=== PATIENT | male | born 1955 | race Caucasian/White ===

== ENCOUNTER → 2016-08-15 | Day surgery (SDC) | payer OTHER ==
[~2016-08-15] MED LIST: AMLO5 PO; ASPI81TA45 PO; BENA5; BUPIVACAINE/EPINEPHRINE 0.25% PF 30 ML VIAL ONE; DOXA1 PO; KETOROLAC TROMETHAMINE 30 MG/ML (IVP) VIAL IV PUSH ONE; LACTATED RINGER'S 1000 ML INJ 1,000 ML ONE; MIDAZOLAM HCL 2 MG/2 ML VIAL ONE; ONDANSETRON HCL 4 MG/2 ML VIAL IV PUSH ONE; PROPOFOL 200 MG/20 ML AMP IV ONE; ceFAZolin 2 GM PREMIX 50 ML ONE
--- NOTE | 2016-08-15 11:33 | TN ---
cc: JOSSELINE RENEE M.D. DATE OF SURGERY: 08/15/2016 PREOPERATIVE DIAGNOSIS Left recurrent inguinal hernia. POSTOPERATIVE DIAGNOSIS Left recurrent inguinal hernia. PROCEDURE Laparoscopic repair recurrent left inguinal hernia with mesh. SURGEON Dr. Josseline Renee. OSTEOPATHY DOCTOR KAUR Schrader ANESTHESIA General. INDICATIONS This is a pleasant 61-year-old gentleman who about 20-30 years ago had an open left inguinal hernia repair with mesh by Dr. Bib Munroe. He developed severe pain in the left groin after many years and Dr. Mateo Renee took him back to surgery for mesh removal and suture repair of his hernia. He has now developed recurrent pain and a bulge which he is able to reduce. The pain is worse when he is sitting upright. A physical exam demonstrated recurrent left inguinal hernia. Recommendation was made for operative repair via laparoscopic approach. INTRAOPERATIVE FINDINGS Recurrent direct inguinal hernia on the left. Estimated blood loss was minimal. DESCRIPTION OF PROCEDURE IN DETAIL The patient identified as Emeka Turpin, taken to the operating room and placed in the supine position. Sequential compression devices were placed on bilateral lower extremities. Following induction of adequate general anesthesia with a Pro-seal the patient's lower abdomen was prepped and draped in usual sterile fashion with Betadine. A time-out procedure was performed. Following completion of time-out procedure to everyone's satisfaction within the room, 0.25% Marcaine with epinephrine was placed at each incision site. Infraumbilical 2-cm vertical incision was carried out with scalpel and dissection continued posteriorly and laterally to the left of the anterior rectus fascia on the left side. This was incised in vertical fashion allowing for development of preperitoneal plane, posterior to the rectus muscle directed towards the pubic symphysis. Preperitoneal dissecting balloon was placed in preperitoneal position and with the patient in slight Trendelenburg position under direct laparoscopic view, the balloon was insufflated to a total of approximately 30 pumps. This allowed for identification of a direct hernia pseudo sac. Preperitoneal fatty tissue was seen reducing from the pseudo sac. The balloon trocar was desufflated and removed and the structural balloon trocar was placed in the preperitoneal space, its balloon inflated with C02 insufflation until a level of 11 mmHg ensued. The two infraumbilical 5 mm trocars were then placed in the preperitoneal space under direct laparoscopic view after incision of the skin with a scalpel. The direct hernia defect was then completely released from hernia preperitoneal fatty tissue and the pseudo sac was tacked to the anterior Bonifacio's ligament with a pro-tack device. Blunt dissection lateral and posterior to the spermatic cord was performed and in doing so scar tissue tore a small defect in the peritoneum which was closed with 0-PDS Endoloop. The 4 x 6 inch piece of [employer]rium ProLite mesh was then cut and the anterolateral slit placed around the spermatic cord and tacked in position with the Pro-tack device. Tacks were placed to approximate the anterolateral slit along the anterior border of Bonifacio's ligament and the superior border of the mesh. A 2 x 5 inch piece of mesh was then placed across the anterolateral slit and held in position with the Pro-tack device. Photograph was taken of the completed repair. The direct hernia defect was broadly covered with the mesh. Remaining local anesthetic was placed in preperitoneal space. Trocars were removed under direct visualization. There was no evidence of bleeding from trocar sites. Preperitoneal space was desufflated through the infraumbilical port, was then removed. Infraumbilical anterior rectus fascial incision was closed with running 2-0 Vicryl suture. Port site skin incisions were approximated with 4-0 Monocryl subcuticular sutures. Dressings were applied, Mastisol, half-inch brown Steri-Strips. The patient tolerated the procedure without apparent complication. Sponge, needle and instrument counts were correct at the end of the case. Surgical procedure was assisted by my nurse practitioner. My BENCH MOVER's presence was necessary through the case to maintain adequate visualization for repair of the hernia. My BENCH MOVER was assisting me through the duration of the procedure. The skill set of a nurse practitioner was medically necessary to complete the procedure. During the surgical case the surgical instrument mechanic was working at the back table providing appropriate instrumentation to the nurse practitioner who was directly assisting me. MD ELIOT Sousa/CONCHA /10:59 AM /11:19 AM
== END | disposition home or self-care (01) ==
LOC: ESDC 08:07
PROVIDERS: ATTEND Surgery Trauma Surgery
DX: K40.91 Unilateral inguinal hernia, without obstruction or gangrene, recurrent (principal)
CPT/HCPCS: 00840; 49651; C1727; C1781; J0690; J1885; J2250; J2405; J3010; J7120